=== PATIENT | female | born 1990 | race Caucasian/White ===

== ENCOUNTER 2016-07-03 17:07 | Outpatient (CLI) | payer OTHER, SELFPAY ==
[~2016-07-03] VITALS: Ht 165.1 cm; Wt 83.0 kg
[2016-07-03] MEDS ORDERED: IRON65TA PO (17:57)
[2016-07-03] MEDS ORDERED: PRENTAB55 PO (17:57)
== END 2016-07-03 18:55 | disposition home or self-care (01) ==
LOC: M LDO 17:07
PROVIDERS: ATTEND Obstetrics & Gynecology
DX: O47.1 False labor at or after 37 completed weeks of gestation (principal); Z3A.38 38 weeks gestation of pregnancy

== ENCOUNTER 2016-07-10 06:40 | Outpatient (CLI) | payer OTHER, SELFPAY ==
[~2016-07-10 06:40] MED LIST: IRON65TA PO; PRENTAB55 PO
== END 2016-07-10 09:37 | disposition home or self-care (01) ==
LOC: M LDO 06:40
PROVIDERS: ATTEND Obstetrics & Gynecology
DX: O47.1 False labor at or after 37 completed weeks of gestation (principal); Z3A.39 39 weeks gestation of pregnancy

== ENCOUNTER 2016-07-10 20:45 | Inpatient (IN) | payer OTHER, SELFPAY ==
[2016-07-10] VITALS (13 sets, daily range): BP systolic 119–138; BP diastolic 67–84
[~2016-07-10] VITALS: Ht 165.1 cm; Wt 83.0 kg
[2016-07-10] MEDS ORDERED: LACTATED RINGER'S 1000 ML IV STA (20:57)
[2016-07-10 21:22] LABS: MEAN CORPUSCULAR HEMOGLOBIN 32.3 pg (27.0-33.0); MEAN CORPUSCULAR HGB CONC 35.8 g/dl (32.0-36.5); MEAN CORPUSCULAR VOLUME 90.2 fl (80.0-96.0)
[2016-07-10] MEDS ORDERED: FENTANYL 2MCG/ML ROPIVACAINE 0.2% NACL 250 ML CADD As Ordered ONE (22:02)
[2016-07-10] MEDS ORDERED: ONDANSETRON 4MG/2ML VIAL (J2405) IV PRN (22:40)
[2016-07-10] MEDS ORDERED: EPIDURAL COMMENT XX SCH (22:40)
[2016-07-10] MEDS ORDERED: diphenhydrAMINE INJ 50MG/ML VIAL (J1200) IV PRN (22:40)
[2016-07-10] MEDS ORDERED: LACTATED RINGER'S 1000 ML IV PRN (22:40)
[2016-07-10] MEDS ORDERED: ePHEDrine SULFATE 25 MG/5 ML(5MG/ML) SYRINGE IV PRN (22:40)
[2016-07-10] MEDS ORDERED: REFRIGERATOR IV KEYS XX PRN (22:40)
[2016-07-10] MEDS ORDERED: EPIDURAL/PCA KEYS XX PRN (22:40)
[2016-07-10] MEDS ORDERED: FENTANYL/ROPIVACAINE/NACL CADD 250 ML EPIDURAL SCH (22:40)
[2016-07-10] MEDS ORDERED: NALOXONE INJ 0.4 MG/1 ML VIAL (J2310) IV PRN (22:40)
[2016-07-11] VITALS (17 sets, daily range): BP systolic 109–142; BP diastolic 56–105
[2016-07-11] MEDS ORDERED: OXYTOCIN 30 UNITS IN 0.9% NaCl 500ML IV BAG (J2590) As Ordered ONE (00:33)
[2016-07-11] MEDS ORDERED: OXYTOCIN DRIP 30 UNITS in APPROPRIATE DILUENT 1 EA IV SCH (01:48)
[2016-07-11] MEDS ORDERED: RHOGAM 300 MCG (1500 IU) INJ (J2790) IM SCH (02:00)
[2016-07-11] MEDS ORDERED: METHYLERGONOVINE MALEATE 0.2 MG/ML VIAL (J2210) IM PRN (02:00)
[2016-07-11] MEDS ORDERED: IBUPROFEN 800 MG TAB PO PRN (02:00)
[2016-07-11] MEDS ORDERED: ACETAMINOPHEN 500 MG TAB PO PRN (02:00)
[2016-07-11] MEDS ORDERED: MEASLES,MUMPS,RUBELLA VACCINE INJ (MMR-II) (90707) SC SCH (02:00)
[2016-07-11] MEDS ORDERED: DIBUCAINE 1% OINTMENT 30GM TOP PRN (02:00)
[2016-07-11] MEDS ORDERED: PROMETHAZINE 25 MG TAB PO PRN (02:00)
[2016-07-11] MEDS ORDERED: ONDANSETRON 4MG/2ML VIAL (J2405) IV PRN (02:00)
[2016-07-11] MEDS: PRENATAL VITAMIN TAB PO SCH (09:54)
[2016-07-11] MEDS: DOCUSATE SODIUM 100 MG CAP PO SCH ×2 (09:54→21:30)
[2016-07-12 05:25] VITALS: BP 112/59
[2016-07-12] MEDS: DOCUSATE SODIUM 100 MG CAP PO SCH (07:20)
[2016-07-12] MEDS: PRENATAL VITAMIN TAB PO SCH (07:20)
[2016-07-12] MEDS ORDERED: COLA100C PO (08:42)
[2016-07-12] MEDS ORDERED: ACET50TA PO (08:43)
[2016-07-12] MEDS ORDERED: IBUP-1114 PO (08:43)
== END 2016-07-12 12:00 | disposition home or self-care (01) | DRG 775 ==
LOC: M LDO 20:45 → M LDI 20:52 → M OBS 07-11 03:55
PROVIDERS: ADMIT Obstetrics & Gynecology; ATTEND Obstetrics & Gynecology
PROC: 10E0XZZ Delivery of Products of Conception, External Approach (ICD-10-PCS; principal; 2016-07-11)
PROC: 0HQ9XZZ Repair Perineum Skin, External Approach (ICD-10-PCS; 2016-07-11)
DX: O70.0 First degree perineal laceration during delivery (principal); Z37.0 Single live birth; Z3A.39 39 weeks gestation of pregnancy

== ENCOUNTER 2018-02-18 10:17 | Inpatient (IN) | payer OTHER ==
[2018-02-18] MEDS ORDERED: LR 1,000 ML IV (10:53)
[2018-02-18] MEDS: LACTATED RINGER'S 1000 ML IV (11:07)
[2018-02-18 11:11] LABS: BASO % 0.3 % (0.0-1.0); EOS # 0.2 10^3/uL (0.0-0.50); EOS % 1.8 % (0.0-3.0); HEMATOCRIT 35.1 % (36.0-47.0); HEMOGLOBIN 12.3 g/dl (12.0-15.5); IMMATURE GRANULOCYTE % 0.4 % (0-3.0); LYMPH # 2.1 10^3/uL (1.5-6.5); LYMPH % 16.9 % (24.0-44.0); MEAN CORPUSCULAR HEMOGLOBIN 31.9 pg (27.0-33.0); MEAN CORPUSCULAR VOLUME 90.9 fl (80.0-96.0); MONO # 0.6 10^3/uL (0.0-0.8); NEUTROPHILS # 9.5 10^3/uL (1.8-7.7); NEUTROPHILS % 75.6 % (36.0-66.0); PLATELET COUNT, AUTOMATED 212 10^3/uL (150-450); RED BLOOD COUNT 3.86 10^6/uL (4.00-5.40); RED CELL DISTRIBUTION WIDTH 13.4 % (11.5-14.5); WHITE BLOOD COUNT 12.5 10^3/uL (4.0-10.0)
[2018-02-18] MEDS ORDERED: FENTANYL 2MCG/ML ROPIVACAINE 0.2% IN 0.9% NACL 200ML IVBAG As Ordered (11:57)
[2018-02-18] MEDS ORDERED: EPIDURAL COMMENT XX (13:45)
[2018-02-18] MEDS ORDERED: REFRIGERATOR IV KEYS XX (13:45)
[2018-02-18] MEDS ORDERED: FENTANYL/ROPIVACAINE/NACL BAG 200 ML EPIDURAL (13:45)
[2018-02-18] MEDS ORDERED: EPIDURAL/PCA KEYS XX (13:45)
[2018-02-18] MEDS ORDERED: LACTATED RINGER'S 1000 ML IV (13:45)
[2018-02-18] MEDS ORDERED: ONDANSETRON 4MG/2ML VIAL (J2405) IV (13:45)
[2018-02-18] MEDS ORDERED: NALOXONE INJ 0.4 MG/1 ML VIAL (J2310) IV (13:45)
[2018-02-18] MEDS ORDERED: ePHEDrine SULFATE 25 MG/5 ML(5MG/ML) SYRINGE IV (13:45)
[2018-02-18] MEDS ORDERED: diphenhydrAMINE INJ 50MG/ML VIAL (J1200) IV (13:45)
[2018-02-18] MEDS ORDERED: OXYTOCIN 30 UNITS IN 0.9% NaCl 500ML IV BAG (J2590) As Ordered (14:06)
[2018-02-18] MEDS ORDERED: RHOGAM 300 MCG (1500 IU) INJ (J2790) IM (14:15)
[2018-02-18] MEDS ORDERED: DIBUCAINE 1% OINTMENT 30GM TOP (14:15)
[2018-02-18] MEDS ORDERED: IBUPROFEN 800 MG TAB PO (14:15)
[2018-02-18] MEDS ORDERED: ACETAMINOPHEN 500 MG TAB PO (14:15)
[2018-02-18] MEDS ORDERED: DOCUSATE SODIUM 100 MG CAP PO (14:15)
[2018-02-18] MEDS ORDERED: MEASLES,MUMPS,RUBELLA VACCINE INJ (MMR-II) (90707) SC (14:15)
[2018-02-18] MEDS: OXYTOCIN DRIP 30 UNITS in APPROPRIATE DILUENT 1 EA IV (15:04)
[2018-02-19] MEDS: PRENATAL VITAMINS CHEWABLE TABLET PO (08:34)
== END 2018-02-19 17:37 | disposition home or self-care (01) | DRG 775 ==
LOC: M LDO 10:17 → M LDI 10:51 → M OBS 16:15
PROVIDERS: Obstetrics & Gynecology
PROC: 10E0XZZ Delivery of Products of Conception, External Approach (ICD-10-PCS; principal; 2018-02-18)
DX: O80 Encounter for full-term uncomplicated delivery (principal); Z3A.38 38 weeks gestation of pregnancy; Z37.0 Single live birth